=== PATIENT | female | born 1980 | race Two or more races ===

== ENCOUNTER 2022-06-25 14:21 | Emergency (ER) | payer OTHER ==
[~2022-06-25] VITALS: Ht 162.6 cm; Wt 67.1 kg
[2022-06-25] MEDS ORDERED: CANDESARTAN CILE8 MG PO (15:16)
== END 2022-06-25 19:23 | disposition home or self-care (01) ==
LOC: ER 14:21
DX: U07.1 COVID-19 (principal)